=== PATIENT | female | born 1965 | race Caucasian/White ===

== ENCOUNTER → 2016-11-01 | Outpatient (CLI) | payer BC ==
--- NOTE | 2016-11-01 13:46 | RADRPT ---
PROCEDURE: XR Knees. CLINICAL INDICATION: Bilateral knee pain. TECHNIQUE: Total of eight views. Weightbearing frontal, oblique, and lateral views of the both kn ees. Patellar views of both knees. COMPARISON: No prior study is available for comparison. FINDINGS: There is no fracture or dislocation. The soft tissues are normal. Articular surfaces are intact. There is no lytic or blastic lesion. There is no radiopaque foreign body. IMPRESSION: 1. Unremarkable images of both knees. RPTAT: QQ .Kevin Reynoso MD, MD Date Time Electronically viewed and signed by .Kevin Reynoso MD, MD on 11/01/2016 13:45 .R/
== END | disposition home or self-care (01) ==
LOC: HKI 08:32
PROVIDERS: ATTEND Orthopaedic Surgery
DX: M22.42 Chondromalacia patellae, left knee (principal); M22.41 Chondromalacia patellae, right knee; M25.562 Pain in left knee; M25.561 Pain in right knee
CPT/HCPCS: 73564; G0463